=== PATIENT | female | born 2000 | race African-American/Black ===

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

== ENCOUNTER 2019-01-23 21:18 | Emergency (ER) | payer OTHER ==
[~2019-01-23] VITALS: Ht 149.9 cm; Wt 135.2 kg
[2019-01-23 22:17] VITALS: BP 162/74; TEMP 98
== END 2019-01-23 22:17 | disposition home or self-care (01) ==
LOC: ED 21:18
DX: T63.481A Toxic effect of venom of other arthropod, accidental (unintentional), initial encounter (principal); L03.116 Cellulitis of left lower limb
CPT/HCPCS: 99282

== ENCOUNTER 2019-06-19 11:38 | Emergency (ER) | payer OTHER ==
[~2019-06-19] VITALS: Ht 149.9 cm; Wt 135.2 kg
[2019-06-19 12:28] LABS: PLATELET COUNT 382 K/uL (152-353)
[2019-06-19 12:38] LABS: POTASSIUM 3.8 mmol/L (3.6-5.2)
[2019-06-19 15:34] VITALS: BP 125/76; TEMP 98.8
== END 2019-06-19 15:42 | disposition home or self-care (01) ==
LOC: ED 11:38
PROVIDERS: Emergency Medicine
DX: R10.9 Unspecified abdominal pain (principal); R14.1 Gas pain
CPT/HCPCS: 80053; 81000; 81025; 82150; 83690; 85027; 99283

== ENCOUNTER 2019-06-26 19:48 | Emergency (ER) | payer OTHER ==
[~2019-06-26] VITALS: Ht 149.9 cm; Wt 132.9 kg
[2019-06-26 22:06] VITALS: BP 121/69; TEMP 98.7
== END 2019-06-26 22:07 | disposition home or self-care (01) ==
LOC: ED 19:48
DX: L01.00 Impetigo, unspecified (principal)
CPT/HCPCS: 99281; 99282

== ENCOUNTER 2019-10-03 17:24 | Emergency (ER) | payer OTHER ==
[~2019-10-03] VITALS: Ht 149.9 cm; Wt 132.9 kg
[2019-10-03 17:33] VITALS: BP 153/82; TEMP 98.2
[2019-10-03 18:38] LABS: PLATELET COUNT 367 K/uL (152-353)
[2019-10-03 19:02] LABS: POTASSIUM 3.7 mmol/L (3.6-5.2); SODIUM 141 mmol/L (136-145)
== END 2019-10-03 19:58 | disposition home or self-care (01) ==
LOC: ED 17:24
PROVIDERS: Family Medicine
DX: R07.89 Other chest pain (principal); N83.209 Unspecified ovarian cyst, unspecified side; J06.9 Acute upper respiratory infection, unspecified; R00.0 Tachycardia, unspecified
CPT/HCPCS: 36415; 80053; 81000; 84484; 85027; 93005; 99283